=== PATIENT | male | born 1955 | race Caucasian/White ===

== ENCOUNTER → 2017-11-01 | Outpatient (CLI) | payer OTHER ==
--- NOTE | 2017-11-02 17:42 | TST ---
[place] [address] TREADMILL STRESS TEST Name: JOHN PRINGLE Room: [facility]#: [id number] Admission: 11/01/17 Attend Phys: Amish Diaz Discharge: Date of : 51 Date of Service: 11/01/17 1715 Report #: [id number] THIS REPORT FOR: //name// CC: Morris Syed MD DATE OF SERVICE: 11/01/2017 INDICATIONS: Exercise stress test was requested in this patient with a history of chest pain. PROCEDURE: Exercise stress test was performed without imaging using a Ian protocol treadmill. FINDINGS: The patient had a pretest heart rate of 66, blood pressure 130/80. The patient was able to exercise for 8 minutes and 50 seconds achieving a peak heart rate of 156, which is greater than 90% of maximum predicted heart rate for the patient's age. The peak blood pressure is 230/74. In recovery, the patient had a heart rate of 84, blood pressure 134/86. The patient denied chest pain with exercise. It was terminated due to leg pain and fatigue. The patient's resting ECG showed a normal sinus rhythm with no significant ST or T-wave change noted at baseline. With exercise, there was a significant amount of baseline artifact. The patient appeared to develop J-point depression with exercise, but there was no significant ST-segment depression at 80 milliseconds after the J-point. There were no arrhythmias noted with exercise. IMPRESSION: 1. Excellent exercise tolerance. 2. No chest pain with exercise. 3. No ischemic ST segment changes noted with exercise. 4. Negative exercise stress test for myocardial ischemia. 5. Low risk exercise stress test for future cardiac events. <ELECTRONICALLY SIGNED> By: Bruce Olea MD, FACC 11/02/17 1742 1715 [id number] Bruce Olea MD, FACC /nt
== END ==
LOC: M.CRD 09:34
DX: R05 Cough (principal)